=== PATIENT | male | born 1935 | race Caucasian/White ===

== ENCOUNTER 2018-04-10 16:14 | Observation (INO) | payer MEDICARE ==
[~2018-04-10] VITALS: Ht 180.3 cm; Wt 99.8 kg
[2018-04-10] MEDS ORDERED: FUROSEMIDE20 MG PO (17:09)
[2018-04-10] MEDS ORDERED: K-TAB ER20 MEQ PO (17:09)
[2018-04-10] MEDS ORDERED: HYDROCHLOROTHIA25 MG PO (17:09)
[2018-04-10] MEDS ORDERED: METFORMIN HCL500 MG PO (17:10)
[2018-04-10] MEDS ORDERED: DIGITEK125 MCG PO (17:10)
[2018-04-10] MEDS ORDERED: COZAAR50 MG PO (17:10)
[2018-04-10] MEDS ORDERED: NORCO 5-325 TA1 EACH PO (17:11)
[2018-04-10] MEDS ORDERED: ALLOPURINOL300 MG PO (17:11)
[2018-04-10] MEDS ORDERED: CARVEDILOL6.25 MG PO (17:12)
[2018-04-10] MEDS ORDERED: WARFARIN SODIUM3 MG (17:12)
[2018-04-10] MEDS ORDERED: GLIPIZIDE5 MG PO (17:12)
[2018-04-10] MEDS ORDERED: LIPITOR20 MG PO (17:14)
--- NOTE | 2018-04-10 19:05 | NUR ---
PT TO FLOOR ACCOMPANIED BY GRAND DAUGHTER JELANI AND HER KURT, PT AMBULATED FROM STRETCHER TO BED WITH 1 PSBA W/CANE, TOLERATED WELL. PT RESTING IN BED, NO C/O SOB/CP, NO C/O PAIN. PT AOX4, APPROPRIATE. HX OBTAINED FROM PT WELL FAMILY. QUESTIONS ANSWERED. PT ORIENTED TO ROOM. VSS.
--- NOTE | 2018-04-10 19:22 | NUR ---
VITALS DONE AND CHARTED.
--- NOTE | 2018-04-10 19:23 | NUR ---
VITALS DONE AND CHARTED. HELPED PT TO THE PT TO THE BATHROOM AND BACK TO BED. CLEANED UP URINE ON THE BATHROOM FLOOR WITH THE RED WIPES. BEDSIDE TABLE AND CALL LIGHT IN REACH.
--- NOTE | 2018-04-10 19:45 | NUR ---
IN ROOM TO ADMIN SCHED MEDS, PT RESTING IN BED, SHCED MEDS GIVEN, PT UP TO VOID WITH 1 PSBA WITH URINAL, PT TOLERATED WELL, NO C/O SOB. PT PASSING GAS WELL. NO ABD DISCOMFORT, NO C/O NAUSEA. ASSESSMENT COMPLETE, LS CLEAR, DIMINISHED IN BASES, PT ON RA, PT TOELRATED PO MEDS WELL. PT GIVEN SANDWICH PER PT'S REQUEST, IV ABX INFUSING PER EMAR. PT HAS DARKENED AREA ON PT'S BILATERAL LOWER EXTREMITIES, ESPECIALLY ON PT'S RIGHT LEG, PT STATES THAT HE WEARS COMPRESSION STOCKING WHEN SLEEPING. PT'S VSS, NO FURTHER REQUESTS, PT RESTING AT BEDSIDE. CALL LIGHT WITHIN REACH.
--- NOTE | 2018-04-10 20:30 | NUR ---
PATIENT CALLED FOR ASSISTANCE USING THE URINAL. I CLEANED UP HIS BEDSIDE TABLE AFTER HE WAS THROUGH USING THE URINAL. HE WAS SITTING UP ON THE SIDE OF HIS BED. CALL LIGHT WAS WITHIN REACH AND BEDSIDE TABLE NEXT TO PT.
--- NOTE | 2018-04-10 21:05 | NUR ---
PT DENIES NEEDS AT THIS TIME, IV SET TO TKO UNTIL NEXT ABX INFUSIO. CALL LIGHT IS CLOSE.
--- NOTE | 2018-04-10 21:13 | NUR ---
PT RESTING AT BEDSIDE, NO REQUESTS AT THIS TIME, ON RA, IV ABX INFUSING PER EMAR WNL, FALL PRECAUTIONS IN PLACE.
--- NOTE | 2018-04-10 22:41 | NUR ---
DENTURES PLACED IN WATER WITH CLEANSER IN BATHROOM, HEARING AIDS PLACED IN BLUE BAG AT BEDSIDE. PT DENIES ANY FURTHER NEEDS AT THIS TIME. IV SL. CALL LIGHT WITHIN REACH. FALL PRECAUTIONS IN PLACE.
--- NOTE | 2018-04-10 23:18 | NUR ---
PT RESTING IN BED, EYES CLOSED, BREATHS EVEN, UNLABORED, NO REQUESTS AT THIS TIME, CALL LIGHT WITHIN REACH, FALL PRECAUTIONS IN PLACE.
--- NOTE | 2018-04-11 00:49 | NUR ---
PT RESTING IN BED, EYES CLOSED, BREATHS EVEN, UNLABORED, NO REQUESTS AT THIS TIME, CALL LIGHT WITHIN REACH. ON TELE #7 HR 70, FALL PRECAUTIONS IN PLACE.
--- NOTE | 2018-04-11 01:10 | NUR ---
PT STATES THAT HE FEELS MORE SHORT OF BREATH, PT UP TO BEDSIDE, O2 SAT 96% ON RA, DISCUSSED WITH RT, PT GIVEN SCHEDULED NEB TREATMENT. RT IN ROOM WITH PT NOW.
--- NOTE | 2018-04-11 01:22 | NUR ---
NEB TREATMENT COMPLETE, PT STATES THAT HE FEELS BETTER, SOB HAS RELEIVED, PT CONTINUING TO SIT AT THE BEDSIDE, ON RA, O2 SAT 96%. PT'S AUDIBLE WHEEZING HAS SUBSIDED. CALL LIGHT WITHIN REACH.
--- NOTE | 2018-04-11 01:23 | NUR ---
VITALS AND I&OS DONE AND CHARTED. BESIDE TABLE AND CALL LIGHT IN REACH. PT NEEDS NOTHING AT THIS TIME.
--- NOTE | 2018-04-11 01:24 | NUR ---
FRESH ICE WATER GIVEN.
--- NOTE | 2018-04-11 03:08 | NUR ---
PT RESTING IN BED, EYES CLOSED, BREATHS EVEN, UNLABORED, NO REQUESTS AT THIS TIME, CALL LIGHT WITHIN REACH. FALL PRECAUTIONS IN PLACE.
--- NOTE | 2018-04-11 04:08 | NUR ---
PT RESTING IN BED, EYES CLOSED, BREATHS EVEN, UNLABORED, CALL LIGHT WITHIN REACH, FALL PRECAUTIONS IN PLACE.
--- NOTE | 2018-04-11 04:11 | NUR ---
patient was awake as I walked by so I checked on him and he said he was "doing alright". I suggested putting a pillow under his feet due to him slidding down in the bed from sitting up so high. He agreed and said he was more comfortable.
--- NOTE | 2018-04-11 04:13 | NUR ---
BATTERY IN TELE BOX CHANGED, PT DENIES SOB/CP, STATES THAT HE FEELS HE IS BREATHING BETTER, PT AOX4, RR 20, HR 73, NO REQUESTS AT THIS TIME, DENIES ANY PAIN, CALL LIGHT WIHTIN REACH, FALL PRECAUTIONS IN PLACE.
--- NOTE | 2018-04-11 05:00 | NUR ---
PT AOX4, APPROPRIATE, PT ON RA, URINE OUTPUT QS, 1 PERSON ASSIST W/CANE, PT BECOMES SOB WITH EXERTION, O2 SATS REMAIN > 95%, VSS. NO C/O PAIN, TOLERATING ADA DIET WELL. ACCUCHECKS/ SS INSULIN. IV ABX INFUSED PER EMAR. PT ABLE TO SLEEP MOST OF SHIFT. USES CALL LIGHT APPROPRIATELY. ON TELE #7
--- NOTE | 2018-04-11 05:21 | NUR ---
PT AWAKE, RESTING AT THE BEDSIDE READING, PT DENIES ANY SOB AT THIS TIME, PT UP TO VOID IN URINAL, VOIDED 125 MLS OF URINE, PT BACK TO REST AT BEDSIDE. VSS, AFEBRILE, O2 SAT 94% ON RA, NO REQUESTS AT THIS TIME, CALL LIGHT WITHIN REACH, FALL PRECAUTIONS IN PLACE.
--- NOTE | 2018-04-11 06:44 | NUR ---
MORNING ORAL CARE PERFORMED, PT AMBULATED FROM BED TO BATHROOM W/CANE 1 PERSON SBA, PT TOLERATED WELL, PT DID NOT C/O SOB UNTIL PT WAS GETTING BACK INTO BED. O2 SAT >95% ON RA. PT VOIDED WELL HAD BM. PT BACK TO BED NOW, CALL LIGHT WITHIN REACH, FALL PRECAUTIONS IN PLACE.
[2018-04-11] MEDS ORDERED: GLIPIZIDE ER5 MG PO (07:24)
[2018-04-11] MEDS ORDERED: METFORMIN HCL500 M1 PO (07:24)
[2018-04-11] MEDS ORDERED: POTASSIUM CHLO10 ME1 PO (07:25)
--- NOTE | 2018-04-11 07:25 | NUR ---
PT AWAKE, ALERT AND ORIENTED X3. PT DENIES CHEST PAIN AND SOB. NO NEEDS AT THIS TIME. PERSONAL SUPPLIES AND CALL LIGHT WITHIN REACH.
[2018-04-11] MEDS ORDERED: FUROSEMIDE20 MG PO (07:51)
[2018-04-11] MEDS ORDERED: NORCO 5-325 TA1 EACH PO (08:25)
--- NOTE | 2018-04-11 09:17 | EKG ---
[facility] [address] [place] [address] Signed Ventricular-paced rhythm with occasional premature ventricular complexes Abnormal ECG No previous ECGs available Confirmed by CHERRY GOLD MD ([id number]) on 04/11/2018 9:17:32 AM Electronically Signed By: CHERRY GOLD MD 04/11/18 0917 PATIENT NAME: AVA MCDOWELL Electrocardiogram DATE OF : 33 PHYSICIAN: CHERRY GOLD MD REPORT #: [id number] REPORT IS CONFIDENTIAL AND NOT TO BE RELEASED WITHOUT AUTHORIZATION
--- NOTE | 2018-04-11 09:23 | NUR ---
PT AMBULATED IN HALLWAY. OXYGEN SATURATION LEVEL BEFORE WALK WAS 95% ON RA, DURING WALK THE LOWEST WAS 93% ON RA. PT DENIED CHEST PAIN AND SOB WHILE WALKING, BUT STATED ONCE HE SAT DOWN HE FELT "A BIT SOB".
--- NOTE | 2018-04-11 10:53 | NUR ---
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
[2018-04-11] MEDS ORDERED: WARFARIN SODIUM6 MG PO (11:38)
--- NOTE | 2018-04-11 12:37 | NUR ---
Medications reconciled using pharmacy records and patient med list
--- NOTE | 2018-04-11 13:58 | NUR ---
PT SITTING UP IN CHAIR AT THIS TIME. PT DENIES PAIN, SOB AND CHEST PAIN. PERSONAL SUPPLIES AND CALL LIGHT WITHIN REACH OF PT.
--- NOTE | 2018-04-11 14:47 | NUR ---
PT RESTING IN CHAIR AT THIS TIME. PT DENIES PAIN, SOB AND CHEST PAIN. PERSONAL SUPPLIES AND CALL LIGHT WITHIN REACH.
--- NOTE | 2018-04-11 18:34 | NUR ---
PT A&OX3. RA. SL/IV ABX. TOLERATING DIET. BS CHECKS WITH S/S INSULING. 1PA WITH CANE.
--- NOTE | 2018-04-11 19:37 | NUR ---
RECIEVED CHANGE OF SHIFT REPORT FROM JEAN FINN. IV IN LEFT AC INFILTRATED, JEAN FINN REMOVED IV, PATIENT TOLERATED WELL. NOTIFED CHARGE NURSE OF NEED FOR NEW PLACEMENT OF IV. WHITE BOARD UPDATED.
--- NOTE | 2018-04-11 19:43 | NUR ---
HELPED PT TO THE BATHROOM AND BACK TO BED WITH HIS CANE. BEDSIDE TABLE AND CALL LIGHT IN REACH. PT NEEDS NOTHING AT THIS TIME.
--- NOTE | 2018-04-11 20:33 | NUR ---
blood sugar done and charted. informed rn of results. 167
--- NOTE | 2018-04-11 21:34 | NUR ---
ROUNDED CHARGE. PATIENT IS RESTING IN BED. PATIENT DENIES ANY COMMENTS, QUESTIONS OR CONCERNS. NO NEEDS NOTED. CALL LIGHT IN REACH.
--- NOTE | 2018-04-11 22:00 | NUR ---
ASSESSMENT COMPLETE. PATIENT DENIES CHEST PAIN, SOB, OR DIFFICULTY BREATHING. FINE CRACKLES NOTED IN RIGHT LOWER LOBE, ENCOURAGED PATIENT TO COUGH AND DEEP BREATH. SALINE LOCKED AFTER SCHEDULED ABX FINISHED INFUSING PER MAY. PATIENT REPORTS HAVING FLATUS. KENN HOSE IN PLACE. PATIENT REPORTS NUMBESS IN BILATERAL LOWER EXTREMITIES. SBA PATIENT TO RESTROOM WITH CANE, PATIENT DENIES DIZZINESS WITH AMBULATION. PATIENT DENIES PAIN. BIRD RN IN ROOM WITH PATIENT AT THIS TIME. NO MORE NEEDS AT THIS TIME. TELE MONITOR 7.
--- NOTE | 2018-04-12 00:20 | NUR ---
HELPED PT TO THE BATHROOM AND BACK TO BED WITH HIS CANE. PER HIS REQUEST I GAVE HIM A WARM BLANKET. BEDSIDE TABLE AND CALL LIGHT IN REACH.
--- NOTE | 2018-04-12 00:22 | NUR ---
ROUNDED ON PATIENT RESTING IN BED WITH EYES CLOSED, RESPIRATORY RATE IS EVEN AND UNLABORED. CALL LIGHT WITHIN REACH.
--- NOTE | 2018-04-12 02:54 | NUR ---
round on patient sitting on side of bed with air quality consultant, june in room. call light within reach. no more needs at this time.
--- NOTE | 2018-04-12 03:45 | NUR ---
ASSESSMENT COMPLETE. PATIENT DENIES PAIN. PATIENT DENIES SOB, DIFFICULTY BREATHING OR CHEST PAIN. IV ASSESSED TO BE PATENT, WNL. PATIENT DENIES NUMBNESS AND TINGLING IN EXTREMITIES. TELE MONITOR 7, HR: 70'S. ACTIVE BOWEL TONES. SALINE LOCKED. CALL LIGHT WITHIN REACH. POSSESSIONS AT BEDSIDE. NO MORE NEEDS AT THIS TIME. KENN HOSE IN PLACE.
--- NOTE | 2018-04-12 05:56 | NUR ---
SLEPT ON AND OFF THROUGHOUT SHIFT. SALINE LOCKED. NEW IV PLACED THIS SHIFT. KENN FERNANDEZ. ADA DIET (CARDIAC). TELE #7. IV ABX. NO PRN PAIN MEDICATION THIS SHIFT. 1PA WITH CANE. ROOM AIR.
--- NOTE | 2018-04-12 06:15 | NUR ---
ROUNDED ON PATIENT SITTING ON SIDE OF BED WAITING FOR GRAVEDIGGER TO ASSIST PATIENT TO WASH FACE. THIS RN NOTIFED GAETANO SPANGLER. CALL LIGHT WITHIN REACH. NO MORE NEEDS AT THIS TIME.
--- NOTE | 2018-04-12 07:56 | NUR ---
SANTOS REPORT FROM NURSE. PATIENT NOW SITTING UP AT EDGE OF BED EATING BREAKFAST. AAOX3. FULL BODY ASSESMENT DONE. PATIENT REPORTS DID NOT SLEEP WELL, CBG THIS MORNING 136.
--- NOTE | 2018-04-12 09:04 | NUR ---
PATIENT IN BED RESTING. PATIENT STATED HE GAVE HIMSELF A SPONGE BATH THIS AM. FRESH WATER GIVEN. CALL LIGHT IN REACH. NO FURTHER NEEDS AT THIS TIME.
--- NOTE | 2018-04-12 10:15 | NUR ---
PT PLANS ON RETURNING HOME UPON DC. STATES HE USES A WALKER WHEN OUT AND ABOUT.
[2018-04-12] MEDS ORDERED: CEFPODOXIME PR200 MG PO (11:00)
[2018-04-12] MEDS ORDERED: AZITHROMYCIN500 MG PO (11:01)
[2018-04-12] MEDS ORDERED: WARFARIN SODIUM5 MG PO (11:02)
[2018-04-12] MEDS ORDERED: COUMADIN6 MG PO ×2 (12:03→12:05)
== END 2018-04-12 12:30 | disposition home or self-care (01) ==
LOC: ED 16:14 → MS 16:16
PROVIDERS: ADMIT Internal Medicine
DX: J18.9 Pneumonia, unspecified organism (principal); E11.9 Type 2 diabetes mellitus without complications; I10 Essential (primary) hypertension; E78.5 Hyperlipidemia, unspecified; R60.9 Edema, unspecified; G89.29 Other chronic pain; M54.9 Dorsalgia, unspecified; M25.552 Pain in left hip; Z79.01 Long term (current) use of anticoagulants; Z79.84 Long term (current) use of oral hypoglycemic drugs; Z95.0 Presence of cardiac pacemaker; Z86.718 Personal history of other venous thrombosis and embolism; Z79.899 Other long term (current) drug therapy
CPT/HCPCS: 36415; 71045; 80048; 80053; 80162; 83605; 83880; 84484; 85025; 85610; 85730; 87040; 93005; 93010; 94640; 96365; 96366; 96367; 96375; 96376; 99285-25; G0378; J0456; J0696; J1815; J1940